=== PATIENT | male | born 1945 | race Caucasian/White ===

== ENCOUNTER → 2022-10-03 | Outpatient (CLI) | payer MEDICARE ==
[2022-10-03 17:30] LABS: CHOL/HDL RATIO 3.5 (4.2-7.3)
[2022-10-03 18:04] LABS: HEMOGLOBIN A1C 5.8 % (3.8-5.6)
== END | disposition home or self-care (01) ==
LOC: LABMN 14:26
PROVIDERS: ATTEND Psychiatry & Neurology Psychiatry
DX: F33.1 Major depressive disorder, recurrent, moderate (principal)
CPT/HCPCS: 80061; 82947; 83036